=== PATIENT | female | born 1970 | race Caucasian/White ===

== ENCOUNTER 2019-01-10 05:16 | Inpatient (IN) | payer BC ==
[2019-01-05 16:42] LABS: ANION GAP 12.6 mmol/L (8-16); BLOOD UREA NITROGEN 15 mg/dL (7-26); BUN/CREATININE RATIO 15 (6-25); CALCIUM 9.4 mg/dL (8.4-10.2); CARBON DIOXIDE 27 mmol/L (22-29); CHLORIDE 103 mmol/L (98-107); CREATININE, SERUM 0.97 mg/dL (0.57-1.11); EST GLOMERULAR FILTRATION RATE > 60 ML/MIN (60-); GLUCOSE 102 mg/dL (74-118); POTASSIUM 3.6 mmol/L (3.5-5.1); SODIUM 139 mmol/L (136-145)
[~2019-01-10] VITALS: Ht 167.6 cm; Wt 120.2 kg
[~2019-01-10 05:16] MED LIST: LASIX40 MG PO; LEVETIRACETAM500 MG PO; LEXAPRO10 MG PO; METHOCARBAMOL750 MG PO; NORCO 10-325 T1 EACH PO; PROPRANOLOL HCL80 MG PO; SPIRONOLACTONE25 MG PO; SUMATRIPTAN SUC25 MG PO; TRAZODONE HCL50 MG PO
[2019-01-10] MEDS ORDERED: BUPIVACAINE 0.25% 30ML SDV INJ ONE (06:28)
[2019-01-10] MEDS ORDERED: CEFAZOLIN SOD 1 GM/NS 50ML 100 ML IV ONE (06:30)
[2019-01-10 06:41] LABS: BASOPHILS % 0.5 % (0.0-1.0); EOSINOPHILS # (AUTO) 0.1 (0.0-0.4); EOSINOPHILS % 1.8 % (0.0-6.0); HEMATOCRIT 39.1 % (34.2-44.1); HEMOGLOBIN 13.9 g/dL (12.0-16.0); LYMPHOCYTES # (AUTO) 2.6 (1.0-3.2); LYMPHOCYTES % 34.6 % (18.0-39.1); MEAN CORPUSCULAR HEMOGLOBIN 30.5 pg (28-32); MEAN CORPUSCULAR HGB CONC 35.5 g/dL (31-35); MEAN CORPUSCULAR VOLUME 85.9 fL (81-99); MONOCYTES # (AUTO) 0.6 (0.2-0.8); MONOCYTES % 8.3 % (4.4-11.3); NEUTROPHILS # (AUTO) 4.1 (2.1-6.9); NEUTROPHILS % 53.8 % (38.7-80.0); PLATELET COUNT 232 x10e3/uL (140-360); RED BLOOD COUNT 4.55 x10e6/uL (3.6-5.1); RED CELL DISTRIBUTION WIDTH 13.4 % (11.7-14.4)
--- NOTE | 2019-01-10 07:05 | NUR ---
SPIRITUAL CARE - Pre-Surgery Assessment: Pt in bed. Pt's at bedside. Pt reported supportive attention from family and friends. Intervention: I provided pastoral presence, hospitality, and sympathetic listening. I acquainted pt with availability of facing cutting machine operator while hospitalized. Outcome: Pt expressed appreciation for visit. No need for follow up indicated at this time. NATHAN Alatorrelain Spiritual Care Department O: [phone] Pager: [phone] ([phone] number calling from)
[2019-01-10] MEDS ORDERED: ACETAMINOPHEN 1000 MG/100 ML 100 ML IV ONE (07:10)
[2019-01-10] MEDS ORDERED: SCOPOLAMINE 1.5 MG PATCH ONE (07:10)
[2019-01-10] MEDS ORDERED: SUGAMMADEX SODIUM 200 MG/2 ML VIAL IV ONE (07:11)
[2019-01-10] MEDS ORDERED: LIDOCAINE HCL (LTA) 4 ML SOLN ONE (07:11)
[2019-01-10] MEDS ORDERED: SCOPOLAMINE 1.5 MG PATCH TOP SCH (09:30)
[2019-01-10] MEDS ORDERED: MORPHINE SULFATE 2 MG/ML SYR 1ML IV PRN (09:30)
[2019-01-10] MEDS ORDERED: ONDANSETRON HCL INJ 2MG/ML 2ML 2 MG/ML VIAL IV PRN ×2 (09:30→16:45)
[2019-01-10] MEDS ORDERED: ONDANSETRON HCL INJ 2MG/ML 2ML 2 MG/ML VIAL ONE ×2 (10:09→18:45)
[2019-01-10] MEDS ORDERED: METOCLOPRAMIDE HCL 10 MG/2ML VIAL ONE (10:09)
[2019-01-10] MEDS ORDERED: FENTANYL CITRATE/PF 100MCG/2 ML INJ ONE ×2 (10:14→18:42)
--- NOTE | 2019-01-10 10:43 | NUR ---
Patient admitted to unit from PACU. Patient is AAOx3. Patient is post op hernia repair and kyaw and y. 3 trochar sites noted clean and dry. Lung san clear to auscultation.. Bowel sounds hypoactive. PRN pain meds given. NO s/s of distress noted noted. Right AC IV in place. Spouse at bedside. Patient is NPO at this time.
[2019-01-10 11:05] VITALS: BP 152/93
[2019-01-10] MEDS: SODIUM CHLORIDE 0.9% 1000ML 1,000 ML IV SCH ×2 (11:26→20:00)
[2019-01-10 11:27] VITALS: BP 152/93
--- NOTE | 2019-01-10 12:05 | Operative Report ---
DATE OF PROCEDURE: 01/10/2019 SURGEON: Kurtis Weiner MD PREOPERATIVE DIAGNOSES: 1. Morbid obesity, BMI 44. 2. Hypertension. 3. Hiatal hernia. POSTOPERATIVE DIAGNOSES: 1. Morbid obesity, BMI 44. 2. Hypertension. 3. Hiatal hernia. PREOPERATIVE INDICATION: 1. Treat disease, prevent complications related to comorbid conditions of obesity. 2. Prevent complications related to hiatal hernia. PROCEDURES: 1. Laparoscopic Chris-en-Y gastric bypass. 2. Laparoscopic hiatal hernia repair. ANESTHESIA: General. NEEDLE PUNCH OPERATOR: Yash Wolfe, rn neurosurgical (needed due to complexity of case). FLUIDS: 600 mL of crystalloid. ESTIMATED BLOOD LOSS: 50 mL. DRAINS: None. COMPLICATIONS: None. SPECIMENS: None. GRAFTS: None. FINDINGS: 1. Normal upper GI anatomy. 2. Negative intraoperative EGD leak test. PROCEDURE IN DETAIL: The patient was brought to the operating room and was intubated under general endotracheal anesthesia. She was positioned in supine with both arms abducted and all pressure points were appropriately padded. She was sterilely prepped and draped in the usual fashion. A preprocedure pause was performed identifying the patient, use of perioperative antibiotics, intended procedure, and staff surgeon. Access was gained via a 5 mm left subcostal incision using a Veress needle. Abdomen was insufflated to a pressure of 15 mmHg pressure. A 0 degree 5 mm Optiview trocar was placed under direct visualization. No injuries were noted. Four additional trocars were placed in standard position. Liver retractor was used to expose the stomach. I 1st incised the gastrohepatic ligament via the pars flaccida technique and dissected out hiatal hernia from the right and left dolly of the diaphragm and repaired the hiatal hernia with a 2-0 Surgidac suture in interrupted fashion. Next, we ligated the descending branches of the left gastric vessels using the [place] LigaSure device all the way up to the lesser curvature of the stomach. I then formulated the gastric pouch to about 20 mL in volume by dividing the proximal stomach with a purple load 60 mm Endo-TEDDY stapling device, we used about four loads. I then over-sewed the proximal staple line with 2-0 Surgidac suture in imbricating fashion. Next, I divided the small intestine 50 cm distal to the ligament of Treitz with a arvizu load and ligated the mesentery down to its base with the Harmonic Scalpel. I then measured 150 cm Chris limb and performed an end-to-side jejunojejunostomy with a arvizu load stapling device. The common enterotomy site was also stable with a arvizu load. I then over-sewed the jejunal defect with 2-0 Surgidac suture in a continuous fashion. Anti-obstruction stitches were placed in a Lembert fashion on either side of the anastomosis with 2-0 Surgidac suture. Next, split the omentum with the [place] LigaSure device to allow passage of the Chris limb without tension. The Chris limb was brought up and posterior layer between the Chris limb and the gastric pouch was done with 2-0 Surgidac suture in a Lembert fashion. Enterotomies were made in the pouch and the jejunum and a linear anastomosis of 2 cm was done with a single firing of a purple stapler. Common enterotomy site was over-sewn with 2-0 Polysorb suture beginning on either end of the anastomosis and tying it in the middle over an adult-sized endoscope, which was used as a bougie. Next, over-sewed the suture line with 2-0 Surgidac suture in an imbricating fashion. Intraoperative EGD leak test was performed. No leaks were identified. I then placed omental patch over the anastomosis with 2-0 Surgidac suture. Next, I closed Weinstein defect with 2-0 Surgidac suture in a continuous fashion. The large port site was closed with 0 Vicryl suture using the Matthew Izaguirre technique in a [id number] fashion. We then verified hemostasis and removed the liver retractor and desufflated the abdomen. Incision sites were closed with 4-0 Monocryl suture in a subcuticular fashion. Dermabond dressings were applied. A 0.25% bupivacaine was used both at the preperitoneal incision sites. The patient tolerated the procedure well. Type of wound was type 2, clean, contaminated. All surgical sponges and instruments counts were correct. MD JON Hill/ELISEO /[id number]
[2019-01-10] MEDS: HYDROCODONE/APAP 7.5MG-325MG 1 EA TAB PO PRN (12:17)
--- NOTE | 2019-01-10 12:17 | NUR ---
Patient c/o severe abd pain and back pain. PRN norco given with a small sip of water. Will continue to monitor
--- NOTE | 2019-01-10 15:33 | NUR ---
Patient voided at this time
[2019-01-10] MEDS ORDERED: FUROSEMIDE 40 MG TAB PO PRN (16:30)
[2019-01-10] MEDS ORDERED: SUMATRIPTAN SUCCINATE 25 MG TAB PO PRN (16:30)
[2019-01-10] MEDS ORDERED: HYDROMORPHONE 1MG/1ML INJ IV PRN (16:30)
[2019-01-10 16:40] VITALS: BP 142/90
[2019-01-10] MEDS ORDERED: PROMETHAZINE 25MG/ NS 50ML (IV) IV PRN (16:45)
[2019-01-10] MEDS ORDERED: PROMETHAZINE 25MG/SOD CHL 0.9% 50 ML IV PRN (16:45)
[2019-01-10] MEDS ORDERED: PROMETHAZINE 12.5MG/ NACL 0.9% 12.5 MG/50 ML BAG IV PRN (17:15)
--- NOTE | 2019-01-10 17:28 | History and Physical ---
CHIEF COMPLAINT: "I had weight loss surgery." HISTORY OF PRESENT ILLNESS: This is a 48-year-old white woman, who presents to [facility] with diagnosis of extreme obesity, BMI of 43, that complicates her underlying hypertension. Today, the patient underwent successful laparoscopic Chris-en-Y gastric bypass with hiatal hernia repair. This surgery was performed by Dr. Kurtis Weiner. After the surgery, the patient underwent upper endoscopy that revealed a negative intraoperative EGD leak test. The EGD revealed normal upper gastrointestinal anatomy. The patient's main complaint is nausea and vomiting. She also complains of abdominal pain. The patient states that the intravenous morphine is not helpful. The patient underwent a complete blood count and basic metabolic profile on January 10, 2019, which was unremarkable. REVIEW OF SYSTEMS: GENERAL: The patient has lost 10 pounds in the last two weeks. No fever or chills. HEENT: No headaches. No visual changes. CARDIOVASCULAR/RESPIRATORY: No chest pain. No short of breath or cough. GASTROINTESTINAL: Complains of nausea, vomiting, abdominal pain at this time. GENITOURINARY: Perez catheter is removed. NEUROMUSCULAR: No limb weakness or numbness. PAST MEDICAL HISTORY: 1. Hypertension. 2. Depression. 3. Extreme obesity. 4. Migraine headaches. 5. Chronic neck pain secondary to multilevel cervical spine disk disease. FAMILY HISTORY: Parents, both parents had hypertension. Mother was diabetic. PAST SURGERY HISTORY: 1. Partial hysterectomy. 2. section 3 times. 3. Breast augmentation. 4. Laparoscopic Chris-en-Y gastric bypass and hiatal hernia repair today. ALLERGIES: SULFA ANTIBIOTICS. SOCIAL HISTORY: This woman is and lives with her . She is a homemaker. No history of tobacco or alcohol use. HOME MEDICATIONS: 1. Lexapro 20 mg daily. 2. Furosemide 40 mg once daily as needed for leg edema. 3. Hydrocodone/acetaminophen 10/325 one pill daily as needed for migraine headaches or neck/lower back pain. 4. Keppra 3000 mg daily. 5. Propranolol 80 mg b.i.d. 6. Spironolactone 25 mg daily. 7. Sumatriptan 100 mg daily as needed for migraine headaches. 8. Trazodone 300 mg at bedtime. PHYSICAL EXAMINATION: GENERAL: She is awake, alert, and fluent. Her is at bedside. VITAL SIGNS: Height 5 feet 6 inches, weight 270 pounds, and BMI 43. Blood pressure is 152/92, pulse 62, respiratory rate 18, oxygen saturation is 96% on room air, and temperature 95.5. INTEGUMENT: Skin is warm and dry. Slight pallor. No jaundice or diaphoresis. HEENT: Anicteric sclerae. Moist mucous membranes. NECK: Supple. CARDIOVASCULAR: Distant heart sounds. Regular rate and rhythm. LUNGS: No rales. No rhonchi or wheeze. ABDOMEN: Obese. The laparoscopic incisions are clean, dry, and intact. No drainage or erythema is appreciated. No bowel sounds are auscultated. EXTREMITIES: No edema or deformity. She is wearing sequential compression devices. NEUROLOGIC: Intact. DIAGNOSES: 1. Extreme obesity, BMI of 43, complicated underlying hypertension. 2. Hypertensive heart disease. 3. Status post laparoscopic Chris-en-Y gastric bypass and hiatal hernia repair. PLAN: 1. Antiemetics as needed. 2. Pain control. 3. Encouraged incentive spirometer usage to prevent atelectasis. 4. Intravenous fluids. 5. We will start enoxaparin this evening to prevent deep venous thrombosis. 6. Resume home medications tomorrow morning. I would like to thank, Dr. Weiner for involving me in the care of this patient. I spent 45 minutes in the care of this patient. MD CATRACHITA Louie/ELISEO /[id number] JERRELL
[2019-01-10] MEDS ORDERED: MIDAZOLAM HCL 2 MG/2 ML VIAL ONE (18:42)
[2019-01-10] MEDS ORDERED: ROCURONIUM BROMIDE 10 MG/ML 5ML VIAL ONE (18:45)
[2019-01-10] MEDS ORDERED: GLYCOPYRROLATE INJ 1MG/ 5 ML SYR ONE (18:45)
[2019-01-10] MEDS ORDERED: LIDOCAINE HCL 2% LOCAL INJ 5 ML SDV VIAL INJ ONE (18:45)
[2019-01-10] MEDS ORDERED: PROPOFOL IV EMULSION 10 MG/ML 20 ML VIAL ONE (18:45)
[2019-01-10] MEDS ORDERED: LIDOCAINE HCL 2% JELLY 5 ML TUBE ONE (18:45)
[2019-01-10] MEDS ORDERED: SEVOFLURANE INHAL SOLN 250 ML PEN BTL ONE (18:45)
[2019-01-10] MEDS ORDERED: DEXAMETHASONE SOD PHOS INJ 4 MG/ML VIAL ONE (18:45)
[2019-01-10 20:00] VITALS: BP 146/89
[2019-01-10] MEDS: ENOXAPARIN SOD INJ 40 MG/0.4 ML SYR SC SCH (20:00)
--- NOTE | 2019-01-10 20:00 | NUR ---
INITIAL ASSESSMENT COMPLETE, THREE TROCAR SITES TO ABD COVERED IN DERMABOND, NO DRAINAGE NOTED, SCD'S IN PLACE, NO VOMITING AT THIS TIME, NAUSEA STILL AT TIMES, NO PAIN AT THIS TIME, ICE CHIPS VERY SPARING, IV INFUSING, NO EDEMA NOTED, FAMILY AT BEDSIDE, CALL LIGHT IN PLACE, TOLD TO CALL FOR NEEDS
--- NOTE | 2019-01-10 20:45 | NUR ---
PT UP TO BATHROOM TO VOID, UP WALKING IN HALLWAY WITH , GATE STEADY, NO DISTRESS NOTED.
[2019-01-10] MEDS ORDERED: TRAZODONE HCL 50 MG TAB PO SCH (21:00)
--- NOTE | 2019-01-10 21:05 | NUR ---
PATIENT BACK TO BED, CALL LIGHT IN REACH, SCD'S BACK IN PLACE, TOLD TO CALL FOR NEEDS
[2019-01-11] VITALS: BP 142/84
[2019-01-11 04:00] VITALS: BP 136/79
[2019-01-11 05:40] LABS: BASOPHILS % 0.1 % (0.0-1.0); HEMOGLOBIN 12.1 g/dL (12.0-16.0); LYMPHOCYTES # (AUTO) 2.1 (1.0-3.2); LYMPHOCYTES % 20.6 % (18.0-39.1); MEAN CORPUSCULAR HEMOGLOBIN 30.2 pg (28-32); MEAN CORPUSCULAR HGB CONC 33.6 g/dL (31-35); MEAN CORPUSCULAR VOLUME 89.8 fL (81-99); MONOCYTES # (AUTO) 0.9 (0.2-0.8); MONOCYTES % 9.1 % (4.4-11.3); NEUTROPHILS % 69.4 % (38.7-80.0); PLATELET COUNT 217 x10e3/uL (140-360); RED BLOOD COUNT 4.01 x10e6/uL (3.6-5.1); RED CELL DISTRIBUTION WIDTH 13.6 % (11.7-14.4)
[2019-01-11 06:02] LABS: ALANINE AMINOTRANSFERASE 52 IU/L (0-55); ALBUMIN 3.4 g/dL (3.5-5.0); ALBUMIN/GLOBULIN RATIO 1.2 (0.8-2.0); ALKALINE PHOSPHATASE 40 IU/L (40-150); ANION GAP 11.6 mmol/L (8-16); BLOOD UREA NITROGEN 12 mg/dL (7-26); BUN/CREATININE RATIO 14 (6-25); CALCIUM 8.3 mg/dL (8.4-10.2); CARBON DIOXIDE 28 mmol/L (22-29); CHLORIDE 105 mmol/L (98-107); CREATININE, SERUM 0.87 mg/dL (0.57-1.11); EST GLOMERULAR FILTRATION RATE > 60 ML/MIN (60-); GLUCOSE 116 mg/dL (74-118); MAGNESIUM 1.7 MG/DL (1.3-2.1); PHOSPHORUS 3.2 MG/DL (2.3-4.7); POTASSIUM 4.6 mmol/L (3.5-5.1); SODIUM 140 mmol/L (136-145)
--- NOTE | 2019-01-11 06:29 | NUR ---
vs wnl all night, family at bedside, no distress noted, call light in reach
--- NOTE | 2019-01-11 07:11 | NUR ---
BEDSIDE ROUND COMPLETED WITH BALTAZAR PURI. PT IS IN BED. PT C/O GAS PAINS AND CHRONIC BACK AND NECK PAIN AT THIS TIME. PT HAS CALL LIGHT IN REACH, WILL CONTINUE TO MONITOR PT.
[2019-01-11 07:14] VITALS: BP 136/79
[2019-01-11] MEDS ORDERED: HYDROCODONE/APAP 7.5MG-325MG 1 EA TAB PO PRN (07:30)
[2019-01-11] MEDS ORDERED: SUMATRIPTAN SUCCINATE 25 MG TAB PO ONE (07:45)
--- NOTE | 2019-01-11 07:50 | NUR ---
PROGRESS NOTE S: No major complaints O: AF,VSS General- no acute distress Abd- soft, incisions c/d/i A/P: POD 1, s/p Lap kyaw en y gastric bypass with hiatal hernia repair -Clears, ambulate, IS, OOB to chair, dc home if doing well
[2019-01-11 08:12] VITALS: BP 153/91
[2019-01-11] MEDS: HYDROCODONE/APAP 7.5MG-325MG 1 EA TAB PO PRN ×2 (08:18→12:23)
[2019-01-11] MEDS ORDERED: HYDROXYZINE HCL 25 MG TAB PO PRN (08:45)
[2019-01-11] MEDS ORDERED: SPIRONOLACTONE 25 MG TAB PO SCH ×2 (09:00→21:00)
[2019-01-11] MEDS ORDERED: ESCITALOPRAM OXALATE 10 MG TAB PO SCH ×2 (09:00→21:00)
[2019-01-11] MEDS ORDERED: LEVETIRACETAM 500 MG TAB PO SCH ×2 (09:00→21:00)
[2019-01-11] MEDS ORDERED: PROPRANOLOL HCL 80 MG CAPCR PO SCH ×2 (09:00→21:00)
[2019-01-11 09:16] VITALS: BP 153/91
--- NOTE | 2019-01-11 09:32 | Discharge Summary ---
ADMITTING DIAGNOSES: 1. Extreme obesity, BMI 43, complicated underlying hypertension. 2. Hypertensive heart disease. 3. Migraine headaches. 4. Depression with anxiety. DISCHARGE DIAGNOSES: 1. Status post laparoscopic Chris-en-Y gastric bypass and laparoscopic hiatal hernia repair. 2. Extreme obesity, BMI 43, complicated underlying hypertension. 3. Migraine headaches. 4. Depression with anxiety. HOSPITAL COURSE: This is a 48-year-old white woman, who was initially admitted to [facility] with diagnosis of extreme obesity, BMI 43. That was affecting her underlying hypertension. The patient underwent successful laparoscopic Chris-en-Y gastric bypass and laparoscopic hiatal hernia repair during this hospitalization. This surgery was performed by Dr. Kurtis Weiner. Her hospitalization was unremarkable. On discharge, she is tolerating a clear liquid diet. DISCHARGE MEDICATIONS: 1. Tylenol No. 3 one pill every 6 hours p.r.n. pain, 25 prescribed, no refills. 2. Zofran 4 mg one pill every 6 hours p.r.n. nausea and vomiting, 20 prescribed, no refills. 3. Lexapro 20 mg daily. 4. Sumatriptan 100 mg once daily as needed for migraine headaches. 5. Furosemide 40 mg daily as needed for leg edema. 6. Hydrocodone/acetaminophen 10/325 one pill daily as needed for migraine headaches or neck/lower back pain. 7. Keppra 300 mg daily. 8. Propranolol 80 mg b.i.d. 9. Spironolactone 25 mg daily. 10. Trazodone 300 mg at bedtime. 11. Hydroxyzine 50 mg once daily as needed for anxiety. FOLLOWUP INSTRUCTIONS: The patient was instructed to follow up with Dr. Kurtis Weiner within 1 week and with her primary care physician within two weeks. MD CATRACHITA Louie/ELISEO /[id number] cc: Kurtis Weiner MD
[2019-01-11] MEDS: ENOXAPARIN SOD INJ 40 MG/0.4 ML SYR SC SCH (09:56)
--- NOTE | 2019-01-11 10:11 | NUR ---
Nutrition Screen Note RD Recommendation for Physician: - ADAT to full liquids per MD Plan of Care: RD following, monitoring for tolerance and adequacy - Diet education provided 01/11 Nutrition reason for involvement: MD Consult- gastric bypass post op diet education Primary Diagnose(s): gastric bypass surgery PMH: obesity, HTN Ht: 66 in Wt: 265 lb BMI: 42.8 kg/m2 IBW: [address] Assessment: (01/11) 48 YOF admitted for kyaw-en-y gastric bypass and laparoscopic hernia repair. Pt seen today per MD consult for diet education. Pt receptive to diet education at time of visit, discussed progression of diet, recommended supplements, and vitamin and mineral supplementation. All questions and concerns addressed at time of visit. Chart reviewed. Labs and meds reviewed. Will continue to monitor. Current Diet: Bariatric clear liquids Malnutrition Evaluation (01/11/19) The patient does not meet criteria for a specified degree of malnutrition at this time. Will re-evaluate at follow-up as appropriate. Diet Education Needs Assessment: Diet education indicated, pt receptive and diet education provided 01/11. Learner(s): pt, significant other Barriers: none Cultural/Language Modifications: none Readiness: ready Method: handouts, discussion Topics: post op gastric bypass diet progression, protein supplementation, vitamin and mineral supplementation Understanding/Compliance: good Diet tolerance: tolerating CL diet Nutrition Care Level: Low Signed: Emilia Means RD, LD, [facility]
[2019-01-11 11:13] VITALS: BP 144/94
--- NOTE | 2019-01-11 13:45 | NUR ---
Visit made by the Spiritual Care Department Pastoral Visitor, Marleen Kovacs. PV provided pastoral presence, prayer, hospitality, and supportive listening. Pastoral Visitor informed pt/family of the scope of [facility]ging [facility] Services and availability. NATHAN ESCOBAR Rn Clinical Review Spiritual Care Department O: [phone] Pager: [phone] ([phone] number calling from)
--- NOTE | 2019-01-11 15:48 | NUR ---
PT EDUCATED ON DISCHARGE INSTRUCTIONS AND FOLLOWUP INSTRUCTIONS. PATIENTS AT BEDSIDE AND HAS ALL OF PT BELONGINGS. IV DISCONTINUED WITHOUT COMPLICATION. PATIENT GIVEN PRESCRIPTION ON CHART AND COPY MADE.
--- NOTE | 2019-01-11 15:56 | NUR ---
PT TAKEN BY WHEELCHAIR TO THE FRONT TO MEET AT THIS TIME.
== END 2019-01-11 15:56 | disposition home or self-care (01) | DRG 621 ==
LOC: OR 05:16 → PACU V 10:35 → MED/SURG 10:52 → OBSVTOIN 11:32
PROVIDERS: ADMIT Internal Medicine; ATTEND Internal Medicine
PROC: 0D164ZA Bypass Stomach to Jejunum, Percutaneous Endoscopic Approach (ICD-10-PCS; principal; 2019-01-10 07:30)
PROC: 0BQT4ZZ Repair Diaphragm, Percutaneous Endoscopic Approach (ICD-10-PCS; 2019-01-10 07:30)
DX: E66.01 Morbid (severe) obesity due to excess calories (principal); Z68.41 Body mass index [BMI] 40.0-44.9, adult; I11.9 Hypertensive heart disease without heart failure; K44.9 Diaphragmatic hernia without obstruction or gangrene; F41.8 Other specified anxiety disorders; K21.9 Gastro-esophageal reflux disease without esophagitis; G43.909 Migraine, unspecified, not intractable, without status migrainosus; M50.30 Other cervical disc degeneration, unspecified cervical region; Z88.2 Allergy status to sulfonamides; Z82.49 Family history of ischemic heart disease and other diseases of the circulatory system; Z83.3 Family history of diabetes mellitus
CPT/HCPCS: 36415; 80048; 80053; 83735; 84100; 85025; 93005; J0690; J1100; J1170; J1650; J2001; J2250; J2270; J2405; J2765; J3010; J3410; J7030